=== PATIENT | male | born 1985 | race Two or more races ===

== ENCOUNTER 2016-09-08 20:04 | Emergency (ER) | payer BC, OTHER ==
[2016-09-08 21:20] VITALS: BP 139/87
[2016-09-08] MEDS ORDERED: Lidocaine 1% 0 ML ONE (21:56)
[2016-09-08] MEDS ORDERED: cefTRIAXone 1 GM, Lidocaine 1% 2.1 ML IM SCH ×2 (22:00)
--- NOTE | 2016-09-08 22:15 | EDM.PDOC ---
ED HPI GENERAL MEDICAL PROBLEM - General Chief Complaint: ENT Problem Stated Complaint: TOOTHACHE Time Seen by Provider: 09/08/16 21:10 Source of Information: Reports: Patient History Limitations: Reports: No Limitations - History of Present Illness INITIAL COMMENTS - FREE TEXT/NARRATIVE: This is a 31-year-old male. Onset of right lower jaw tooth pain yesterday. He thinks he might have some slight drainage and maybe some slight swelling to the right side of his face. He has a history of tooth problems in the past. He does have a dentist that he plans to see this week. Due to the pain and the swelling and the drainage she comes to the ER for evaluation. He did take some Motrin this worked at the edge off the pain but did not stop. No fever no chills no sore throat have been noted. 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 CONTROL ATTENDANT: ibuprofen Right Upper Tooth/Teeth Pain Score (Numeric/FACES): 10 - Related Data Allergies Allergy/AdvReac Type Severity Reaction Status Date / Time No Known Allergies Allergy Verified 10/05/15 15:54 Home Meds: Home Meds Ketorolac [Acular 0.5% Ophth Soln] 0 ml EYEBOTH QID PRN #1 bottle 10/05/15 [Rx] Cephalexin [Keflex] 500 mg PO TID #15 capsule 09/08/16 [Rx] Hydrocodone/Acetaminophen [Hydrocodon-Acetaminophen 5-325] 1 each PO Q6H PRN # 10 tablet 09/08/16 [Rx] Past Medical History - Past Health History Medical/Surgical History: Denies Medical/Surgical History Social & Family History - Family History Family Medical History: Noncontributory - Tobacco Use Smoking Status *Q: Never Smoker Second Hand Smoke Exposure: No - Caffeine Use Caffeine Use: Reports: Coffee - Recreational Drug Use Recreational Drug Use: No ED ROS ENT - Review of Systems Review Of Systems: See Below Constitutional: Reports: No Symptoms HEENT: Reports: Other Respiratory: Reports: No Symptoms Cardiovascular: Reports: No Symptoms Endocrine: Reports: No Symptoms GI/Abdominal: Reports: No Symptoms : Reports: No Symptoms Musculoskeletal: Reports: No Symptoms Skin: Reports: No Symptoms Neurological: Reports: No Symptoms Psychiatric: Reports: No Symptoms Hematologic/Lymphatic: Reports: No Symptoms ED EXAM, ENT - Physical Exam Exam: See Below Exam Limited By: No Limitations General Appearance: Alert, WD/WN, No Apparent Distress Eye Exam: Bilateral Eye: Normal Inspection Ears: Normal External Exam, Normal Canal, Normal TMs Nose: Normal Inspection Mouth/Throat: Other (He has multiple teeth that have dental caries noted, the right lower jaw has at least 3 teeth with advanced several caries but there is no gum swelling that I can note, he has minimal facial swelling on the right side and only some mild adenopathy is noted) Head: Normocephalic Neck: Supple Respiratory/Chest: No Respiratory Distress Back: Full Range of Motion Extremities: Normal Inspection, Normal Range of Motion Neurological: Alert, Oriented Psychiatric: Normal Affect, Normal Mood Skin: Warm, Dry Course - Vital Signs Last Recorded V/S: Last Vital Signs Temp 98.5 F 09/08/16 21:17 Pulse 67 09/08/16 21:17 Resp 18 09/08/16 21:17 BP 139/87 09/08/16 21:17 Pulse Ox 98 09/08/16 21:17 - Orders/Labs/Meds Orders: Active Orders 24 hr Category Date Time Status cefTRIAXone [Rocephin] 1 gm Med 09/08/16 22:00 Active Lidocaine 1% [Xylocaine 1%] 2.1 ml IM Q24H Medication Orders Ceftriaxone Sodium 1 gm/ (Lidocaine HCl 2.1 ml) 0 gm IM Q24H SHENG Last Admin: 09/08/16 21:57 Dose: 1 inj Meds: Medications Generic Name Dose Route Start Last Admin Trade Name Freq PRN Reason Stop Dose Admin Ceftriaxone Sodium 1 gm/ 0 gm 09/08/16 22:00 09/08/16 21:57 Lidocaine HCl 2.1 ml IM 1 inj Q24H SHENG Administration Discontinued Medications Generic Name Dose Route Start Last Admin Trade Name Freq PRN Reason Stop Dose Admin Lidocaine HCl Confirm 09/08/16 21:56 Xylocaine-Mpf 1% Administered 09/08/16 21:57 Dose 2 mls @ as directed .ROUTE .STK-MED ONE Departure - Departure Time of Disposition: 22:12 Disposition: Home, Self-Care 01 Condition: good Clinical Impression: Pain, dental, Dental infection, Dental caries - Discharge Information Prescriptions: Cephalexin [Keflex] 500 mg PO TID #15 capsule Hydrocodone/Acetaminophen [Hydrocodon-Acetaminophen 5-325] 1 each PO Q6H PRN # 10 tablet PRN Reason: Pain Forms: ED Department Discharge Additional Instructions: Start taking the antibiotics tomorrow evening, use the medicine as needed for pain, make sure you followup with your dentist for tooth repair, return to the ER as needed - My Orders Last 24 Hours: My Active Orders 09/08/16 22:00 cefTRIAXone [Rocephin] 1 gm Lidocaine 1% [Xylocaine 1%] 2.1 ml IM Q24H - Assessment/Plan Last 24 Hours: My Active Orders 09/08/16 22:00 cefTRIAXone [Rocephin] 1 gm Lidocaine 1% [Xylocaine 1%] 2.1 ml IM Q24H
== END 2016-09-08 22:39 | disposition home or self-care (01) ==
LOC: JD.ED 20:04
DX: K02.9 Dental caries, unspecified (principal); K04.7 Periapical abscess without sinus
CPT/HCPCS: 96372; 99283; J0696

== ENCOUNTER 2021-08-17 02:18 | Emergency (ER) | payer OTHER ==
[2021-08-17 02:42] VITALS: BP 147/91; PULSE 86
== END 2021-08-17 03:15 | disposition home or self-care (01) ==
LOC: JD.ED 02:18
DX: G89.18 Other acute postprocedural pain (principal); M79.674 Pain in right toe(s); E66.9 Obesity, unspecified; Z68.43 Body mass index [BMI] 50.0-59.9, adult; Z28.310 Unvaccinated for COVID-19; Z88.0 Allergy status to penicillin
CPT/HCPCS: 99283

== ENCOUNTER 2021-12-16 12:58 | Emergency (ER) | payer OTHER ==
[2021-12-16 15:22] VITALS: BP 154/103; PULSE 94
== END 2021-12-16 15:22 | disposition home or self-care (01) ==
LOC: JD.ED 12:58
DX: Z77.098 Contact with and (suspected) exposure to other hazardous, chiefly nonmedicinal, chemicals (principal)
CPT/HCPCS: 71046; 71046-26; 99283